=== PATIENT | male | born 1970 | race African-American/Black ===

== ENCOUNTER 2017-05-17 16:27 | Emergency (ER) | payer OTHER ==
[~2017-05-17] VITALS: Ht 162.6 cm; Wt 73.0 kg
[2017-05-17 16:47] VITALS: BP 134/92
[2017-05-17] MEDS ORDERED: PREDNISONE 20MG TABLET PO ONE (19:15)
[2017-05-17] MEDS ORDERED: DIPHENHYDRAMINE 25MG CAPSULE PO ONE (19:15)
== END 2017-05-17 19:20 | disposition home or self-care (01) ==
LOC: ER 16:27
DX: L23.4 Allergic contact dermatitis due to dyes (principal)
CPT/HCPCS: 99283; J7512; Z7610; Q0163